=== PATIENT | male | born 1955 | race Caucasian/White ===

== ENCOUNTER → 2018-01-28 | Outpatient (CLI) | payer OTHER ==
[~2018-01-28] MED LIST: IBUPROFEN 800800 M1 PO; LEVAQUIN 500 M500 M2 PO; MIRALAX17 GM PO; PROBIOTIC1 EAC1 PO; UNICOMPLEX M TA1 TA1 PO
== END ==
LOC: M.RAD 14:41
DX: R06.02 Shortness of breath (principal)

== ENCOUNTER 2018-07-01 21:47 | Inpatient (IN) | payer OTHER ==
[~2018-07-01] VITALS: Ht 180.3 cm; Wt 84.8 kg
[2018-07-01 21:58] VITALS: BP 139/74
[2018-07-01 22:28] LABS: ABSOLUTE LYMPHOCYTES 0.4 thou/uL (0.8-5.3); ABSOLUTE MONOCYTES 0.2 thou/uL (0.0-1.2); ABSOLUTE NEUTROPHILS 1.7 thou/uL (1.6-8.1); BASOPHILS 0.5 %; HEMATOCRIT 42.9 % (42.0-52.0); HEMOGLOBIN 14.9 gm/dL (14.0-18.0); MCH 30.3 pg (26.0-34.0); MCHC 34.6 g/dL (28.0-37.0); MCV 87.6 fL (80.0-100.0); MPV 7.3 fl. (7.2-11.1); NUCLEATED RBCS 0 /100WBC; PLATELET COUNT* 109 thou/uL (150-400); POLYS 72.5 %; WBC 2.3 thou/uL (4.0-11.0)
[2018-07-01 22:44] LABS: CALCIUM 8.6 mg/dL (8.5-10.1); CREATININE 1.2 mg/dL (0.6-1.3); POTASSIUM 4.4 mmol/L (3.5-5.1)
[2018-07-01 22:48] LABS: ALBUMIN 3.5 g/dL (3.4-5.0); TOTAL PROTEIN 7.8 g/dL (6.4-8.2)
[2018-07-02 02:15] VITALS: BP 122/78
[2018-07-02 02:33] VITALS: BP 107/68
[2018-07-02] MEDS ORDERED: UNICOMPLEX M TA1 TA1 PO (04:56)
[2018-07-02] MEDS ORDERED: PROBIOTIC1 EAC1 PO (04:57)
[2018-07-02 06:22] LABS: URINE BILIRUBIN NEGATIVE (Negative); URINE BLOOD NEGATIVE (Negative); URINE CLARITY CLEAR; URINE COLOR YELLOW; URINE GLUCOSE-RANDOM NEGATIVE (Negative); URINE KETONES 1+ (Negative); URINE LEUKOCYTES-REFLEX NEGATIVE (Negative); URINE NITRITE-REFLEX NEGATIVE (Negative); URINE PROTEIN 1+ (Negative)
[2018-07-02 08:00] VITALS: BP 113/64
[2018-07-03 00:12] VITALS: BP 106/73
[2018-07-03 02:06] LABS: HEPATITIS B SURFACE AG Negative (Negative)
[2018-07-03 04:17] LABS: ABSOLUTE LYMPHOCYTES 0.7 thou/uL (0.8-5.3); ABSOLUTE MONOCYTES 0.4 thou/uL (0.0-1.2); ABSOLUTE NEUTROPHILS 2.4 thou/uL (1.6-8.1); BASOPHILS 0.4 %; EOSINOPHILS 0.3 %; HEMATOCRIT 35.2 % (42.0-52.0); MCH 30.4 pg (26.0-34.0); MCHC 34.7 g/dL (28.0-37.0); MCV 87.6 fL (80.0-100.0); MONOCYTES 11.8 %; MPV 7.9 fl. (7.2-11.1); NUCLEATED RBCS 0 /100WBC; PLATELET COUNT* 103 thou/uL (150-400); POLYS 67.5 %; RBC 4.02 mil/uL (4.50-6.00); RDW-CV 13.3 % (10.5-14.5); WBC 3.5 thou/uL (4.0-11.0)
[2018-07-03 04:38] LABS: CALCIUM 7.7 mg/dL (8.5-10.1); CREATININE 0.9 mg/dL (0.6-1.3); POTASSIUM 3.9 mmol/L (3.5-5.1)
[2018-07-03 04:58] LABS: HEMOGLOBIN 12.2 gm/dL (14.0-18.0)
[2018-07-03 08:00] VITALS: BP 102/54
[2018-07-03 17:10] VITALS: BP 161/66
[2018-07-04 04:23] LABS: HEMATOCRIT 37.2 % (42.0-52.0); HEMOGLOBIN 12.4 gm/dL (14.0-18.0); MCHC 33.4 g/dL (28.0-37.0); MCV 89.8 fL (80.0-100.0); MPV 8.1 fl. (7.2-11.1); NUCLEATED RBCS 0 /100WBC; PLATELET COUNT* 127 thou/uL (150-400); RBC 4.14 mil/uL (4.50-6.00); RDW-CV 13.4 % (10.5-14.5); WBC 3.8 thou/uL (4.0-11.0)
[2018-07-04 04:52] LABS: CALCIUM 7.9 mg/dL (8.5-10.1); CREATININE 0.9 mg/dL (0.6-1.3); POTASSIUM 4.5 mmol/L (3.5-5.1)
[2018-07-04 06:14] LABS: ABSOLUTE LYMPHOCYTES 2.1 thou/uL (0.8-5.3); ABSOLUTE MONOCYTES 0.2 thou/uL (0.0-1.2); ABSOLUTE NEUTROPHILS 1.5 thou/uL (1.6-8.1); ANISOCYTOSIS 1+; PLATELET ESTIMATE DECREASED; POIKILOCYTOSIS 1+
[2018-07-04 08:00] VITALS: BP 149/101
[2018-07-04] MEDS ORDERED: LEVAQUIN 500 M500 M2 PO (13:55)
[2018-07-04] MEDS ORDERED: MIRALAX17 GM PO (16:20)
[2018-07-04] MEDS ORDERED: IBUPROFEN 800800 M1 PO (16:21)
[2018-07-04 16:22] VITALS: BP 149/101
[2018-07-05 23:12] LABS: ADENOVIRUS Negative (Negative); INFLUENZA A Negative (Negative); INFLUENZA B Negative (Negative); METAPNEUMOVIRUS Negative (Negative); PARAINFLUENZA 1 Negative (Negative); PARAINFLUENZA 2 Negative (Negative); PARAINFLUENZA 3 Negative (Negative); RHINOVIRUS Negative (Negative); RSV A Negative (Negative); RSV B Negative (Negative)
== END 2018-07-04 17:30 | disposition home or self-care (01) | DRG 871 ==
LOC: M.ERS 21:47 → M.TBA-ER 07-02 00:59 → M.3W 07-02 00:59
PROVIDERS: Emergency Medicine; ADMIT Internal Medicine
DX: A41.9 Sepsis, unspecified organism (principal); J18.9 Pneumonia, unspecified organism; A04.9 Bacterial intestinal infection, unspecified; E87.1 Hypo-osmolality and hyponatremia; D70.9 Neutropenia, unspecified; K59.00 Constipation, unspecified; E83.51 Hypocalcemia; Z79.899 Other long term (current) drug therapy

== ENCOUNTER 2019-06-05 15:02 | Emergency (ER) | payer OTHER ==
[~2019-06-05] VITALS: Ht 180.3 cm; Wt 82.1 kg
[2019-06-05 15:22] LABS: ABSOLUTE EOSINOPHILS 0.1 thou/uL (0.0-0.7); ABSOLUTE LYMPHOCYTES 1.7 thou/uL (0.8-5.3); ABSOLUTE MONOCYTES 0.5 thou/uL (0.0-1.2); ABSOLUTE NEUTROPHILS 2.8 thou/uL (1.6-8.1); BASOPHILS 0.6 %; EOSINOPHILS 1.4 %; HEMOGLOBIN 14.3 gm/dL (14.0-18.0); LYMPHOCYTES 33.4 %; MCH 29.9 pg (26.0-34.0); MONOCYTES 9.8 %; MPV 6.8 fl. (7.2-11.1); NUCLEATED RBCS 0 /100WBC; PLATELET COUNT* 272 thou/uL (150-400); POLYS 54.8 %; RBC 4.78 mil/uL (4.50-6.00); RDW-CV 12.9 % (10.5-14.5)
[2019-06-05 15:39] LABS: ANION GAP 10 mmol/L (7-16); BUN 16 mg/dL (7-18); CHLORIDE 100 mmol/L (98-107); CO2 28 mmol/L (21-32); CREATININE 1.1 mg/dL (0.6-1.3); GLUCOSE 111 mg/dL (70-99); POTASSIUM 4.7 mmol/L (3.5-5.1); SODIUM 138 mmol/L (136-145)
[2019-06-05 15:44] LABS: ALBUMIN 3.6 g/dL (3.4-5.0); ALKALINE PHOSPHATASE 61 U/L (46-116); SGOT 27 U/L (15-37); SGPT 25 U/L (30-65); TOTAL BILIRUBIN 0.6 mg/dL (<0.1-1.0); TROPONIN-I LEVEL <0.06 ng/mL (<0.06)
[2019-06-05 16:28] VITALS: BP 128/77
--- NOTE | 2019-06-06 10:58 | EKG ---
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
== END 2019-06-05 16:29 | disposition home or self-care (01) ==
LOC: M.ERS 15:02
PROVIDERS: Nurse Practitioner Family
DX: R07.89 Other chest pain (principal)